=== PATIENT | female | born 1965 | race Caucasian/White ===

== ENCOUNTER 2017-08-11 21:13 | Emergency (ER) | payer OTHER ==
[~2017-08-11] VITALS: Ht 160 cm; Wt 117.6 kg
[2017-08-11 21:18] VITALS: BP 152/105
--- NOTE | 2017-08-11 21:24 | NUR ---
52/F CAME IN W C/O 01/23 EPIGASTRIC PAIN, HEADACHE AND RT LEG NUMBNESS X 1 MONTH. BS ACTIVE X4, ABD SOFT AND DISTENDED. PT REPORTS DIARRHEA X3 TODAY, DENIES N/V, DENIES FEVER/CHILLS. DENIES INJURY/TRAUMA. NO ACUTE RESPIRATORY DISTRESS NOTED AT THIS TIME. PMH: HTN,DM, HLD, DENIES OTC
[2017-08-11] MEDS ORDERED: NACL 0.9% 1,000 ML IV ONE (21:40)
[2017-08-11] MEDS ORDERED: KETOROLAC 30 MG/ML VIAL IVP ONE (21:40)
[2017-08-11] MEDS ORDERED: LISI5TAB18 PO (21:54)
[2017-08-11] MEDS ORDERED: GLIP5TAB4 PO (21:54)
[2017-08-11] MEDS ORDERED: SIMV20TA1 PO (21:54)
[2017-08-11] MEDS ORDERED: GABA300C PO (21:54)
[2017-08-11] MEDS ORDERED: METF850T PO (21:54)
[2017-08-11] MEDS ORDERED: AMLO5TAB PO (21:54)
[2017-08-11] MEDS ORDERED: OMEP20TC12 PO (21:54)
[2017-08-11] MEDS ORDERED: METF1TAB34 PO (21:54)
[2017-08-11] MEDS ORDERED: NAPR-54 PO (21:54)
[2017-08-11] MEDS ORDERED: CYCL10TA13 PO (21:54)
--- NOTE | 2017-08-11 22:06 | NUR ---
Ultrasound at bedside.
[2017-08-11 22:21] LABS: APPEARANCE,URINE CLEAR (CLEAR); BILIRUBIN,URINE NEGATIVE (NEGATIVE); BLOOD, URINE NEGATIVE (NEGATIVE); COLOR,URINE YELLOW (YELLOW); LEUKOCYTE ESTERASE ,URINE NEGATIVE (NEGATIVE); NITRITE, URINE NEGATIVE (NEGATIVE); PH,URINE 6.5 (5.0-9.0); UGLUCOSE NEGATIVE (NEGATIVE)
[2017-08-11 22:36] LABS: ANION GAP 15.3 (8-16); CARBON DIOXIDE 26.6 mmol/L (21-32); CREATININE 0.7 mg/dL (0.6-1.3); POTASSIUM 3.9 mmol/L (3.5-5.1)
[2017-08-11 22:38] LABS: BASOPHILS # (AUTO) 0.2 K/uL (0.00-0.22); BASOPHILS % (AUTO) 1.4 % (0.0-2.0); EOSINOPHILS # (AUTO) 0.2 K/uL (0-0.4); EOSINOPHILS % (AUTO) 1.3 % (0.0-4.0); HEMATOCRIT 36.7 % (36-48); HEMOGLOBIN 12.1 g/dL (12.0-16.0); LYMPHOCYTES # (AUTO) 2.3 K/uL (2.5-16.5); LYMPHOCYTES % (AUTO) 20.3 % (20.5-51.1); MEAN CORPUSCULAR HEMOGLOBIN 27 pg (27-31); MEAN CORPUSCULAR HGB CONC 33 g/dL (33-37); MEAN CORPUSCULAR VOLUME 81.8 fL (80-94); MONOCYTES # (AUTO) 0.9 K/uL (0.8-1.0); MONOCYTES % (AUTO) 8.1 % (1.7-9.3); NEUTROPHILS % (AUTO) 68.9 % (42.2-75.2); PLATELET COUNT (AUTO) 241 K/uL (140-450); RED BLOOD CELL COUNT(AUTO) 4.49 MIL/uL (4.20-5.40); RED CELL DISTRIBUTION WIDTH 12.4 % (11.6-13.7); WHITE BLOOD COUNT (AUTO) 11.6 K/uL (4.8-10.8)
[2017-08-11 22:43] LABS: ALBUMIN 3.4 g/dL (3.4-5.0); TOTAL BILIRUBIN 0.2 mg/dL (0.0-1.0)
--- NOTE | 2017-08-11 23:00 | NUR ---
Patient appears to be resting comfortably in bed. Vital Signs within normal limits. Respirations even and unlabored. reports 05/25 epigastric pain, states " i feel better"
[2017-08-12 01:12] VITALS: BP 118/65
== END 2017-08-12 01:13 | disposition home or self-care (01) ==
LOC: MED 21:13
DX: K76.0 Fatty (change of) liver, not elsewhere classified (principal); E66.9 Obesity, unspecified; E11.9 Type 2 diabetes mellitus without complications; I10 Essential (primary) hypertension
CPT/HCPCS: 36415; 76705; 80053; 81003; 82150; 82948; 83690; 85025; 93971; 96361; 96374; 99285; J1885; J7030; Q0092

== ENCOUNTER 2017-08-13 18:07 | Emergency (ER) | payer OTHER ==
[~2017-08-13] VITALS: Ht 152.4 cm; Wt 108.9 kg
[~2017-08-13 18:07] MED LIST: AMLO5TAB PO; CYCL10TA13 PO; GABA300C PO; GLIP5TAB4 PO; LISI5TAB18 PO; METF1TAB34 PO; METF850T PO; NAPR-54 PO; OMEP20TC12 PO; SIMV20TA1 PO
[2017-08-13 18:12] VITALS: BP 144/99
--- NOTE | 2017-08-13 18:29 | NUR ---
PT HAD A EKG, ST @112, SHOWED TO ER JERMAN CARDOSO TO BE I LOBY UNTIL BED IS AVAILABLE. PT IFORMED TO LET STAFF KNOW IF PAIN WORSENS
[2017-08-13 19:16] LABS: BASOPHILS # (AUTO) 0.2 K/uL (0.00-0.22); BASOPHILS % (AUTO) 1.8 % (0.0-2.0); EOSINOPHILS # (AUTO) 0.3 K/uL (0-0.4); EOSINOPHILS % (AUTO) 2.4 % (0.0-4.0); HEMATOCRIT 38.1 % (36-48); HEMOGLOBIN 12.6 g/dL (12.0-16.0); LYMPHOCYTES # (AUTO) 2.2 K/uL (2.5-16.5); LYMPHOCYTES % (AUTO) 20.8 % (20.5-51.1); MEAN CORPUSCULAR HEMOGLOBIN 27 pg (27-31); MEAN CORPUSCULAR HGB CONC 33 g/dL (33-37); MEAN CORPUSCULAR VOLUME 82.6 fL (80-94); MONOCYTES # (AUTO) 0.8 K/uL (0.8-1.0); MONOCYTES % (AUTO) 7.6 % (1.7-9.3); NEUTROPHILS # (AUTO) 7.2 K/uL (1.8-7.7); NEUTROPHILS % (AUTO) 67.4 % (42.2-75.2); PLATELET COUNT (AUTO) 263 K/uL (140-450); RED BLOOD CELL COUNT(AUTO) 4.61 MIL/uL (4.20-5.40); RED CELL DISTRIBUTION WIDTH 12.9 % (11.6-13.7); WHITE BLOOD COUNT (AUTO) 10.7 K/uL (4.8-10.8)
--- NOTE | 2017-08-13 19:25 | NUR ---
PT AMBULATED TO ER CHAIR A
[2017-08-13 19:29] LABS: ANION GAP 14.5 (8-16); CARBON DIOXIDE 27.5 mmol/L (21-32); CREATININE 0.7 mg/dL (0.6-1.3)
[2017-08-13 19:34] LABS: PROTHROMBIN TIME 9.8 secs (10.8-13.4)
--- NOTE | 2017-08-13 19:43 | NUR ---
DR. CRUZ TALKING TO PATIENT
[2017-08-13 19:51] LABS: ALBUMIN 3.7 g/dL (3.4-5.0); TOTAL BILIRUBIN 0.3 mg/dL (0.0-1.0)
[2017-08-13] MEDS ORDERED: KETOROLAC 60 MG/2 ML VIAL IM ONE (20:05)
[2017-08-13] MEDS ORDERED: PANTOPRAZOLE 40 MG TABEC PO ONE (20:10)
[2017-08-13 22:11] VITALS: BP 133/81
--- NOTE | 2017-08-13 22:11 | NUR ---
Patient discharged with v/s stable. Written and verbal after care instructions given and explained. Patient alert, oriented and verbalized understanding of instructions. Ambulatory with steady gait. All questions addressed prior to discharge. ID band removed. Patient advised to follow up with PMD. Rx of LACTULOSE, TRAMADOL given. Patient educated on indication of medication including possible reaction and side effects. Opportunity to ask questions provided and answered.
== END 2017-08-13 22:11 | disposition home or self-care (01) ==
LOC: MED 18:07
DX: R10.13 Epigastric pain (principal); R63.0 Anorexia; E11.9 Type 2 diabetes mellitus without complications; I10 Essential (primary) hypertension; Z79.899 Other long term (current) drug therapy
CPT/HCPCS: 36415; 71045; 74018; 80053; 83880; 84484; 85025; 85610; 85730; 96372; 99285; J1885

== ENCOUNTER 2017-09-19 15:32 | Emergency (ER) | payer OTHER ==
[~2017-09-19] VITALS: Ht 165.1 cm
[2017-09-19 15:38] VITALS: BP 144/79
[2017-09-19 15:43] VITALS: BP 144/79
--- NOTE | 2017-09-19 15:43 | NUR ---
PT TAKEN TO BED 2 VIA W/C.
[2017-09-19] MEDS ORDERED: KETOROLAC 30 MG/ML VIAL IM ONE (16:15)
[2017-09-19] MEDS ORDERED: fentaNYL 0.05 MG/ML VIAL NS ONE (16:15)
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
[2017-09-19 17:27] VITALS: BP 144/79
--- NOTE | 2017-09-19 17:27 | NUR ---
Patient discharged with v/s stable. Written and verbal after care instructions given and explained. Patient alert, oriented and verbalized understanding of instructions. Ambulatory with steady gait. All questions addressed prior to discharge. ID band removed. Patient advised to follow up with PMD. Rx of Watts given. Patient educated on indication of medication including possible reaction and side effects. Opportunity to ask questions provided and answered.
== END 2017-09-19 17:27 | disposition home or self-care (01) ==
LOC: MED 15:32
DX: M13.861 Other specified arthritis, right knee (principal); E11.9 Type 2 diabetes mellitus without complications; I10 Essential (primary) hypertension; Z79.84 Long term (current) use of oral hypoglycemic drugs; Z79.899 Other long term (current) drug therapy
CPT/HCPCS: 73562; 96372; 99284; J1885; J3010

== ENCOUNTER 2018-06-21 16:24 | Emergency (ER) | payer OTHER ==
[~2018-06-21] VITALS: Ht 165.1 cm; Wt 115.7 kg
[2018-06-21 16:30] VITALS: BP 156/69
--- NOTE | 2018-06-21 16:36 | NUR ---
PATIENT AMBULATED TO BED 4 AT THIS TIME.
[2018-06-21] MEDS ORDERED: diphenhydrAMINE 50 MG CAP PO ONE (16:40)
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
[2018-06-21 17:35] VITALS: BP 112/72
--- NOTE | 2018-06-21 17:42 | NUR ---
Patient discharged with v/s stable. Written and verbal after care instructions given and explained. Patient alert, oriented and verbalized understanding of instructions. Ambulatory with steady gait. All questions addressed prior to discharge. ID band removed. Patient advised to follow up with PMD. Rx of BENADRYL & ACETAMINOPHEN given. Patient educated on indication of medication including possible reaction and side effects. Opportunity to ask questions provided and answered.
== END 2018-06-21 17:42 | disposition home or self-care (01) ==
LOC: MED 16:24
DX: T78.40XA Allergy, unspecified, initial encounter (principal); T39.315A Adverse effect of propionic acid derivatives, initial encounter; E11.9 Type 2 diabetes mellitus without complications; I10 Essential (primary) hypertension; Z79.1 Long term (current) use of non-steroidal anti-inflammatories (NSAID); Z79.84 Long term (current) use of oral hypoglycemic drugs; Z79.899 Other long term (current) drug therapy; Y92.89 Other specified places as the place of occurrence of the external cause
CPT/HCPCS: 99283; Q0163

== ENCOUNTER 2019-01-26 18:31 | Emergency (ER) | payer OTHER ==
[~2019-01-26] VITALS: Ht 160 cm; Wt 119.3 kg
[2019-01-26 18:38] VITALS: BP 146/90
[2019-01-26] MEDS ORDERED: ASPIRIN 81 MG TAB.CHEW PO ONE (18:45)
[2019-01-26] MEDS ORDERED: GABA300C PO (18:51)
[2019-01-26] MEDS ORDERED: PIOG30TA PO (18:53)
[2019-01-26] MEDS ORDERED: FURO20TA8 PO (18:53)
[2019-01-26] MEDS ORDERED: ESCI20TA PO (18:54)
[2019-01-26] MEDS ORDERED: ASPI81EC97 PO (18:54)
[2019-01-26] MEDS ORDERED: METF500T PO (18:56)
[2019-01-26 19:10] LABS: BASOPHILS % (AUTO) 0.3 % (0.0-2.0); EOSINOPHILS # (AUTO) 0.3 K/uL (0-0.4); EOSINOPHILS % (AUTO) 2.6 % (0.0-4.0); HEMATOCRIT 36.6 % (36-48); HEMOGLOBIN 12.1 g/dL (12.0-16.0); LYMPHOCYTES # (AUTO) 2.7 K/uL (2.5-16.5); LYMPHOCYTES % (AUTO) 26.3 % (20.5-51.1); MEAN CORPUSCULAR HEMOGLOBIN 27 pg (27-31); MEAN CORPUSCULAR HGB CONC 33 g/dL (33-37); MEAN CORPUSCULAR VOLUME 80.8 fL (80-94); MONOCYTES # (AUTO) 0.9 K/uL (0.8-1.0); MONOCYTES % (AUTO) 8.4 % (1.7-9.3); NEUTROPHILS # (AUTO) 6.4 K/uL (1.8-7.7); NEUTROPHILS % (AUTO) 62.4 % (42.2-75.2); PLATELET COUNT (AUTO) 280 K/uL (140-450); RED BLOOD CELL COUNT(AUTO) 4.53 MIL/uL (4.20-5.40); RED CELL DISTRIBUTION WIDTH 14.6 % (11.6-13.7); WHITE BLOOD COUNT (AUTO) 10.3 K/uL (4.8-10.8)
[2019-01-26] MEDS ORDERED: KETOROLAC 30 MG/ML VIAL IVP ONE (19:10)
[2019-01-26 19:24] LABS: ANION GAP 17.4 (8-16); CARBON DIOXIDE 24.3 mmol/L (21-32); CREATININE 0.8 mg/dL (0.6-1.3); POTASSIUM 3.7 mmol/L (3.5-5.1)
[2019-01-26 19:30] LABS: ALBUMIN 3.4 g/dL (3.4-5.0); TOTAL BILIRUBIN 0.3 mg/dL (0.0-1.0)
[2019-01-26 20:38] VITALS: BP 122/69
== END 2019-01-26 20:38 | disposition home or self-care (01) ==
LOC: MED 18:31
DX: R07.89 Other chest pain (principal); E11.9 Type 2 diabetes mellitus without complications; I10 Essential (primary) hypertension; Z79.899 Other long term (current) drug therapy; Z79.82 Long term (current) use of aspirin; Z88.8 Allergy status to other drugs, medicaments and biological substances
CPT/HCPCS: 36415; 71045; 80053; 83880; 84484; 85025; 93005; 96374; 99284; J1885; Q0092

== ENCOUNTER 2019-11-29 12:22 | Emergency (ER) | payer OTHER ==
[~2019-11-29] VITALS: Ht 165.1 cm; Wt 117.9 kg
[~2019-11-29 12:22] MED LIST changes: -AMLO5TAB PO; +ASPI81EC97 PO; -CYCL10TA13 PO; +ESCI20TA PO; +FURO20TA8 PO; -METF1TAB34 PO; +METF500T PO; -METF850T PO; -NAPR-54 PO; +PIOG30TA PO
[2019-11-29 12:43] VITALS: BP 148/105
--- NOTE | 2019-11-29 12:43 | NUR ---
PT AMBULATED TO BED 12
--- NOTE | 2019-11-29 12:56 | NUR ---
54/F presents to ED with complaints of vomiting x 8 days. Pt states she had a colonoscopy performed this past Tuesday and states she was placed on a clear diet 3 days prior to procedure. Pt states she was vomiting prior to having the procedure. Pt complains of nausea, no active vomiting noted. Denies abdominal pain. Denies fever or chills. Patient is AOX4, ambulatory with steady gait.
--- NOTE | 2019-11-29 13:00 | NUR ---
Dr. Ozuna is evaluating the patient at bedside.
[2019-11-29] MEDS ORDERED: NACL 0.9% 2,000 ML IV ONE (13:10)
[2019-11-29 13:43] LABS: BASOPHILS # (AUTO) 0.1 K/uL (0.00-0.22); EOSINOPHILS # (AUTO) 0.2 K/uL (0-0.4); EOSINOPHILS % (AUTO) 1.9 % (0.0-4.0); HEMATOCRIT 42.1 % (36-48); HEMOGLOBIN 13.7 g/dL (12.0-16.0); LYMPHOCYTES # (AUTO) 1.9 K/uL (2.5-16.5); LYMPHOCYTES % (AUTO) 17.8 % (20.5-51.1); MEAN CORPUSCULAR HEMOGLOBIN 25 pg (27-31); MEAN CORPUSCULAR HGB CONC 33 g/dL (33-37); MEAN CORPUSCULAR VOLUME 76.1 fL (80-94); MONOCYTES # (AUTO) 0.7 K/uL (0.8-1.0); MONOCYTES % (AUTO) 6.7 % (1.7-9.3); NEUTROPHILS # (AUTO) 7.7 K/uL (1.8-7.7); NEUTROPHILS % (AUTO) 72.6 % (42.2-75.2); PLATELET COUNT (AUTO) 363 K/uL (140-450); RED BLOOD CELL COUNT(AUTO) 5.53 MIL/uL (4.20-5.40); RED CELL DISTRIBUTION WIDTH 15.4 % (11.6-13.7); WHITE BLOOD COUNT (AUTO) 10.6 K/uL (4.8-10.8)
[2019-11-29 14:26] LABS: ALBUMIN 3.9 g/dL (3.4-5.0); CARBON DIOXIDE 26.4 mmol/L (21-32); CREATININE 1.7 mg/dL (0.6-1.3); POTASSIUM 4.4 mmol/L (3.5-5.1); TOTAL BILIRUBIN 0.3 mg/dL (0.0-1.0)
--- NOTE | 2019-11-29 15:37 | NUR ---
IV removed, catheter intact and site benign. Applied folded 4x4 gauze and tape to stop bleeding.
[2019-11-29 15:38] VITALS: BP 163/86
--- NOTE | 2019-11-29 15:38 | NUR ---
Patient discharged with v/s stable. Written and verbal after care instructions given and explained. Patient alert, oriented and verbalized understanding of instructions. Ambulatory with steady gait. All questions addressed prior to discharge. ID band removed. Patient advised to follow up with PMD. Rx of Zofran ODT 4mg given. Patient educated on indication of medication including possible reaction and side effects. Opportunity to ask questions provided and answered.
== END 2019-11-29 15:38 | disposition home or self-care (01) ==
LOC: MED 12:22
DX: E86.0 Dehydration (principal); E11.9 Type 2 diabetes mellitus without complications; R11.2 Nausea with vomiting, unspecified; I10 Essential (primary) hypertension; I51.9 Heart disease, unspecified; Z79.899 Other long term (current) drug therapy; Z79.84 Long term (current) use of oral hypoglycemic drugs; Z88.6 Allergy status to analgesic agent; Z88.8 Allergy status to other drugs, medicaments and biological substances
CPT/HCPCS: 36415; 80053; 81002; 85025; 93005; 96360; 96361; 99284; J7030

== ENCOUNTER 2020-01-21 22:42 | Emergency (ER) | payer OTHER ==
[~2020-01-21] VITALS: Ht 157.5 cm; Wt 119.7 kg
[2020-01-21 23:14] VITALS: BP 136/88
--- NOTE | 2020-01-21 23:19 | NUR ---
PT AMBULATED TO BED 5 WITH STEADY GAIT
--- NOTE | 2020-01-21 23:20 | NUR ---
PT PROVIDING URINE SAMPLE
[2020-01-21] MEDS ORDERED: MORPHINE SULFATE 4 MG/ML SYR IVP ONE (23:45)
[2020-01-22 00:16] LABS: BASOPHILS % (AUTO) 0.1 % (0.0-2.0); EOSINOPHILS # (AUTO) 0.1 K/uL (0-0.4); EOSINOPHILS % (AUTO) 0.4 % (0.0-4.0); HEMATOCRIT 35.1 % (36-48); HEMOGLOBIN 11.1 g/dL (12.0-16.0); LYMPHOCYTES # (AUTO) 2.3 K/uL (2.5-16.5); LYMPHOCYTES % (AUTO) 10.4 % (20.5-51.1); MEAN CORPUSCULAR HEMOGLOBIN 24 pg (27-31); MEAN CORPUSCULAR HGB CONC 32 g/dL (33-37); MEAN CORPUSCULAR VOLUME 76.5 fL (80-94); MONOCYTES # (AUTO) 1.8 K/uL (0.8-1.0); MONOCYTES % (AUTO) 8.3 % (1.7-9.3); NEUTROPHILS # (AUTO) 17.8 K/uL (1.8-7.7); NEUTROPHILS % (AUTO) 80.8 % (42.2-75.2); PLATELET COUNT (AUTO) 279 K/uL (140-450); RED BLOOD CELL COUNT(AUTO) 4.58 MIL/uL (4.20-5.40); RED CELL DISTRIBUTION WIDTH 17.7 % (11.6-13.7); WHITE BLOOD COUNT (AUTO) 22.1 K/uL (4.8-10.8)
[2020-01-22 00:20] LABS: APPEARANCE,URINE CLEAR (CLEAR); BILIRUBIN,URINE NEGATIVE (NEGATIVE); BLOOD, URINE NEGATIVE (NEGATIVE); COLOR,URINE YELLOW (YELLOW); LEUKOCYTE ESTERASE ,URINE 1+ (NEGATIVE); NITRITE, URINE NEGATIVE (NEGATIVE); UGLUCOSE NEGATIVE (NEGATIVE)
[2020-01-22 00:27] LABS: RBC,URINE 0-5 /HPF (0-5); WBC,URINE 16-25 (MOD) /HPF (0-5)
[2020-01-22 00:36] LABS: ANION GAP 11.5 (8-16); CARBON DIOXIDE 27.3 mmol/L (21-32); CREATININE 0.8 mg/dL (0.6-1.3); POTASSIUM 3.8 mmol/L (3.5-5.1)
[2020-01-22 00:41] LABS: ALBUMIN 3.1 g/dL (3.4-5.0); TOTAL BILIRUBIN 0.5 mg/dL (0.0-1.0)
--- NOTE | 2020-01-22 00:56 | NUR ---
54 Y/O F PRESENTS TO ED C/O RLQ 02/22 X 2 DAYS. PT DENIES N/V/D. PT DESCRIBES PAIN TO BE SHARP AND INTERMITTENT. ABD SOFT, NON-TENDER. DENIES TRAUMA, INJURY. BED LOCKED AND IN LOWEST POSITION, SIDE RAIL UPX1. WILL CONTINUE TO MONITOR. ALLERGIES: METFORMIN, IBUPROFEN MHX: DIABETES, HTN
--- NOTE | 2020-01-22 00:56 | NUR ---
US AT BEDSIDE.
[2020-01-22] MEDS ORDERED: MORPHINE SULFATE 4 MG/ML SYR IVP ONE (02:15)
[2020-01-22 02:48] VITALS: BP 136/88
== END 2020-01-22 02:28 | disposition home or self-care (01) ==
LOC: MED 22:42
DX: N39.0 Urinary tract infection, site not specified (principal); I11.0 Hypertensive heart disease with heart failure; E11.9 Type 2 diabetes mellitus without complications; Z88.6 Allergy status to analgesic agent; Z79.899 Other long term (current) drug therapy; Z79.84 Long term (current) use of oral hypoglycemic drugs; Z79.82 Long term (current) use of aspirin
CPT/HCPCS: 36415; 76705; 80053; 81001; 81025; 83690; 85025; 87086; 96374; 99284; J2270; Q0092; 81002

== ENCOUNTER 2020-08-05 19:52 | Emergency (ER) | payer OTHER ==
[~2020-08-05] VITALS: Ht 152.4 cm; Wt 112.9 kg
[~2020-08-05 19:52] MED LIST changes: +GLIP5TAB14 PO; -GLIP5TAB4 PO
[2020-08-05 20:01] VITALS: BP 120/82
[2020-08-05] MEDS ORDERED: ASPIRIN 81 MG TAB.CHEW PO ONE (21:05)
[2020-08-05 21:20] LABS: BASOPHILS # (AUTO) 0.1 K/uL (0.00-0.22); BASOPHILS % (AUTO) 0.9 % (0.0-2.0); EOSINOPHILS # (AUTO) 0.2 K/uL (0-0.4); EOSINOPHILS % (AUTO) 1.8 % (0.0-4.0); HEMATOCRIT 32.4 % (36-48); HEMOGLOBIN 10.7 g/dL (12.0-16.0); LYMPHOCYTES % (AUTO) 29.4 % (20.5-51.1); MEAN CORPUSCULAR HEMOGLOBIN 25 pg (27-31); MEAN CORPUSCULAR HGB CONC 33 g/dL (33-37); MEAN CORPUSCULAR VOLUME 76.8 fL (80-94); MONOCYTES % (AUTO) 9.7 % (1.7-9.3); NEUTROPHILS # (AUTO) 5.9 K/uL (1.8-7.7); NEUTROPHILS % (AUTO) 58.2 % (42.2-75.2); PLATELET COUNT (AUTO) 273 K/uL (140-450); RED BLOOD CELL COUNT(AUTO) 4.22 MIL/uL (4.20-5.40); WHITE BLOOD COUNT (AUTO) 10.2 K/uL (4.8-10.8)
[2020-08-05 21:42] LABS: PROTHROMBIN TIME 9.3 secs (10.8-13.4)
[2020-08-05 21:44] LABS: ALBUMIN 3.3 g/dL (3.4-5.0); ANION GAP 10.2 (8-16); CARBON DIOXIDE 29.8 mmol/L (21-32); CREATININE 0.7 mg/dL (0.6-1.3); TOTAL BILIRUBIN 0.2 mg/dL (0.0-1.0)
[2020-08-06 00:13] VITALS: BP 129/78
== END 2020-08-06 00:09 | disposition home or self-care (01) ==
LOC: MED 19:52
DX: R07.89 Other chest pain (principal)
CPT/HCPCS: 36415; 71045; 80053; 84484; 85025; 85610; 85730; 93005; 99285

== ENCOUNTER 2020-09-02 12:23 | Emergency (ER) | payer OTHER ==
[~2020-09-02] VITALS: Ht 165.1 cm; Wt 112.0 kg
--- NOTE | 2020-09-02 12:31 | NUR ---
Patient ambulated to bed 1. RN evaluating the patient at bedside.
[2020-09-02 12:51] VITALS: BP 139/87
--- NOTE | 2020-09-02 12:58 | NUR ---
55 Y/O F BIB SELF FROM HOME, PT STSTAES EPIGASTRIC PAIN STARTED TODAY 09/02/20 AND HAS BEEN HAVING N&V, STATES 10 EPISODES OF WATERY EMESIS. DENIES HEADACHE, SOB, CHEST PAIN OR COUGH. PMH: ARTHRITIS, HTN, DM2 ALLERGY: IBUPROFEN (FACIAL SWELLING), METFORMIN
[2020-09-02] MEDS ORDERED: ONDANSETRON 4 MG/2 ML VIAL IVP ONE (13:55)
[2020-09-02] MEDS ORDERED: NACL 0.9% 1,000 ML IV ONE (13:55)
[2020-09-02] MEDS ORDERED: MORPHINE SULFATE 4 MG/ML SYR IVP ONE (13:55)
--- NOTE | 2020-09-02 13:59 | NUR ---
EKG completed at bedside by EMT.
[2020-09-02 14:30] LABS: BASOPHILS # (AUTO) 0.1 K/uL (0.00-0.22); BASOPHILS % (AUTO) 0.7 % (0.0-2.0); EOSINOPHILS # (AUTO) 0.1 K/uL (0-0.4); EOSINOPHILS % (AUTO) 1.3 % (0.0-4.0); HEMATOCRIT 36.2 % (36-48); HEMOGLOBIN 11.8 g/dL (12.0-16.0); LYMPHOCYTES # (AUTO) 1.7 K/uL (2.5-16.5); LYMPHOCYTES % (AUTO) 17.4 % (20.5-51.1); MEAN CORPUSCULAR HEMOGLOBIN 25 pg (27-31); MEAN CORPUSCULAR HGB CONC 33 g/dL (33-37); MONOCYTES # (AUTO) 0.8 K/uL (0.8-1.0); MONOCYTES % (AUTO) 7.6 % (1.7-9.3); NEUTROPHILS # (AUTO) 7.2 K/uL (1.8-7.7); PLATELET COUNT (AUTO) 298 K/uL (140-450); RED CELL DISTRIBUTION WIDTH 15.8 % (11.6-13.7); WHITE BLOOD COUNT (AUTO) 9.9 K/uL (4.8-10.8)
[2020-09-02 14:54] LABS: ALBUMIN 3.4 g/dL (3.4-5.0); ANION GAP 10.7 (8-16); CARBON DIOXIDE 27.6 mmol/L (21-32); CREATININE 0.6 mg/dL (0.6-1.3); POTASSIUM 3.3 mmol/L (3.5-5.1); TOTAL BILIRUBIN 0.4 mg/dL (0.0-1.0)
[2020-09-02] MEDS ORDERED: ACET-9800 PO (15:38)
[2020-09-02] MEDS ORDERED: ONDA4TAB PO (15:38)
[2020-09-02] MEDS ORDERED: BEN10 PO (15:38)
[2020-09-02 16:07] VITALS: BP 139/87
--- NOTE | 2020-09-02 16:07 | NUR ---
Patient discharged with v/s stable. Written and verbal after care instructions given and explained. Patient alert, oriented and verbalized understanding of instructions. Ambulatory with steady gait. All questions addressed prior to discharge. ID band removed. Patient advised to follow up with PMD. Rx of TYLENOL, BENTYL, ZOFRAN given. Patient educated on indication of medication including possible reaction and side effects. Opportunity to ask questions provided and answered.
== END 2020-09-02 16:07 | disposition home or self-care (01) ==
LOC: MED 12:23
DX: R10.13 Epigastric pain (principal); R11.10 Vomiting, unspecified; I11.9 Hypertensive heart disease without heart failure; E11.9 Type 2 diabetes mellitus without complications; Z88.6 Allergy status to analgesic agent; Z79.899 Other long term (current) drug therapy
CPT/HCPCS: 36415; 74018; 80053; 83690; 84484; 85025; 93005; 96361; 96374; 96375; 99285; J2270; J2405; J7030; 81002

== ENCOUNTER 2021-03-21 10:34 | Emergency (ER) | payer OTHER ==
[~2021-03-21] VITALS: Ht 157.5 cm; Wt 66.7 kg
[~2021-03-21 10:34] MED LIST changes: +ACET-9800 PO; +BEN10 PO; +OMEP-278 PO; -OMEP20TC12 PO; +ONDA4TAB PO
[2021-03-21 10:39] VITALS: BP 153/82
[2021-03-21] MEDS ORDERED: FAMOTIDINE 20 MG TAB PO ONE (10:45)
[2021-03-21] MEDS ORDERED: diphenhydrAMINE 50 MG CAP PO ONE (10:45)
[2021-03-21] MEDS ORDERED: CRUSHER, PILL MC ONE (10:48)
[2021-03-21] MEDS ORDERED: EPIN0.3S IM (13:35)
[2021-03-21 13:42] VITALS: BP 123/90
== END 2021-03-21 13:42 | disposition home or self-care (01) ==
LOC: MED 10:34
DX: T78.49XA Other allergy, initial encounter (principal); I10 Essential (primary) hypertension
CPT/HCPCS: 99284; Q0163

== ENCOUNTER 2021-03-31 14:22 | Emergency (ER) | payer OTHER ==
[~2021-03-31] VITALS: Ht 195.6 cm; Wt 115.2 kg
[~2021-03-31 14:22] MED LIST changes: +EPIN0.3S IM
[2021-03-31 14:51] VITALS: BP 140/69
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
--- NOTE | 2021-03-31 16:10 | NUR ---
LABS COLLECTED AND WALKED TO LAB
[2021-03-31 16:17] LABS: BASOPHILS % (AUTO) 0.3 % (0.0-2.0); EOSINOPHILS # (AUTO) 0.2 K/uL (0-0.4); EOSINOPHILS % (AUTO) 1.7 % (0.0-4.0); HEMATOCRIT 33.9 % (36-48); HEMOGLOBIN 11.2 g/dL (12.0-16.0); LYMPHOCYTES # (AUTO) 2.5 K/uL (2.5-16.5); LYMPHOCYTES % (AUTO) 23.6 % (20.5-51.1); MEAN CORPUSCULAR HEMOGLOBIN 26 pg (27-31); MEAN CORPUSCULAR HGB CONC 33 g/dL (33-37); MEAN CORPUSCULAR VOLUME 78.3 fL (80-94); MONOCYTES % (AUTO) 9.5 % (1.7-9.3); NEUTROPHILS # (AUTO) 6.8 K/uL (1.8-7.7); NEUTROPHILS % (AUTO) 64.9 % (42.2-75.2); PLATELET COUNT (AUTO) 306 K/uL (140-450); RED BLOOD CELL COUNT(AUTO) 4.33 MIL/uL (4.20-5.40); WHITE BLOOD COUNT (AUTO) 10.5 K/uL (4.8-10.8)
[2021-03-31 16:36] LABS: ALBUMIN 3.5 g/dL (3.4-5.0); ANION GAP 9.8 (8-16); CREATININE 0.7 mg/dL (0.6-1.3); POTASSIUM 3.8 mmol/L (3.5-5.1); TOTAL BILIRUBIN 0.2 mg/dL (0.0-1.0)
[2021-03-31] MEDS ORDERED: CLIN300C61 PO (17:41)
[2021-03-31 17:52] VITALS: BP 140/69
--- NOTE | 2021-03-31 17:52 | NUR ---
Patient discharged with v/s stable. Written and verbal after care instructions given and explained. Patient alert, oriented and verbalized understanding of instructions. Ambulatory with steady gait. All questions addressed prior to discharge. ID band removed. Patient advised to follow up with PMD. Rx of CLINDAMYCIN HCL given. Patient educated on indication of medication including possible reaction and side effects. Opportunity to ask questions provided and answered.
== END 2021-03-31 17:52 | disposition home or self-care (01) ==
LOC: MED 14:22
DX: S99.922A Unspecified injury of left foot, initial encounter (principal); E11.9 Type 2 diabetes mellitus without complications; I10 Essential (primary) hypertension; Z88.6 Allergy status to analgesic agent; Z88.8 Allergy status to other drugs, medicaments and biological substances; Z79.82 Long term (current) use of aspirin; Z79.84 Long term (current) use of oral hypoglycemic drugs; Z79.899 Other long term (current) drug therapy; W20.8XXA Other cause of strike by thrown, projected or falling object, initial encounter; Y93.89 Activity, other specified; Y92.89 Other specified places as the place of occurrence of the external cause; Y99.8 Other external cause status
CPT/HCPCS: 36415; 73660; 80053; 85025; 99284

== ENCOUNTER 2021-04-03 13:22 | Emergency (ER) | payer OTHER ==
[~2021-04-03] VITALS: Ht 160 cm; Wt 114.3 kg
[~2021-04-03 13:22] MED LIST changes: +CLIN300C61 PO
[2021-04-03 13:43] VITALS: BP 134/78
--- NOTE | 2021-04-03 13:50 | NUR ---
PT AMBULATED BACK TO LOBBY AT THIS TIME.
[2021-04-03] MEDS ORDERED: FAMO-92 PO (15:24)
[2021-04-03] MEDS ORDERED: PRED20TA5 PO (15:24)
[2021-04-03] MEDS ORDERED: SULF-59 PO (15:26)
[2021-04-03 15:38] VITALS: BP 134/78
--- NOTE | 2021-04-03 15:39 | NUR ---
Patient discharged with v/s stable. Written and verbal after care instructions given and explained. Patient alert, oriented and verbalized understanding of instructions. Ambulatory with NIECE to car. All questions addressed prior to discharge. ID band removed. Patient advised to follow up with PMD. Rx of FAMOTIDINE, PREDNISONE, SULFAMETHOXAZOLE given. Patient educated on indication of medication including possible reaction and side effects. Opportunity to ask questions provided and answered.
== END 2021-04-03 15:39 | disposition home or self-care (01) ==
LOC: MED 13:22
DX: T36.8X5A Adverse effect of other systemic antibiotics, initial encounter (principal); E11.9 Type 2 diabetes mellitus without complications; I10 Essential (primary) hypertension; Z79.84 Long term (current) use of oral hypoglycemic drugs; Z79.899 Other long term (current) drug therapy; Z88.6 Allergy status to analgesic agent; Z88.8 Allergy status to other drugs, medicaments and biological substances; Y92.89 Other specified places as the place of occurrence of the external cause
CPT/HCPCS: 99283

== ENCOUNTER 2022-01-27 23:47 | Emergency (ER) | payer OTHER ==
[~2022-01-27] VITALS: Ht 160 cm; Wt 112.9 kg
[~2022-01-27 23:47] MED LIST changes: +FAMO-92 PO; +METF-346 PO; -METF500T PO; +PRED20TA5 PO; +SIMV-372 PO; -SIMV20TA1 PO; +SULF-59 PO
[2022-01-28 00:12] VITALS: BP 136/117
--- NOTE | 2022-01-28 00:24 | NUR ---
Patient ambulate to Bed 12 with strong gait. Addendum: 01/28/22 at 0024 by [id number] Patient ambulate to Bed 12 with strong gait. Patient on monitor.
--- NOTE | 2022-01-28 00:40 | NUR ---
ASSUME CARE OF PT AT THIS TIME, REPORT GIVEN BY [facility], PT C/O CP AND SOB X 2 HRS, CP RADIATES TO LEFT ARM, PT STATES BS HAS BEEN HIGH ALL DAY IN THE 400'S, C/O SEVERE HEADACHE, HX-HTN, DM. DENIES ABD PAIN AND N/V/D. WAITING FOR EVALUATION.
[2022-01-28 01:30] LABS: BASOPHILS # (AUTO) 0.1 K/uL (0.00-0.22); BASOPHILS % (AUTO) 0.7 % (0.0-2.0); EOSINOPHILS # (AUTO) 0.3 K/uL (0-0.4); EOSINOPHILS % (AUTO) 3.1 % (0.0-4.0); HEMATOCRIT 36.6 % (36-48); HEMOGLOBIN 12.2 g/dL (12.0-16.0); LYMPHOCYTES # (AUTO) 2.9 K/uL (2.5-16.5); LYMPHOCYTES % (AUTO) 29.8 % (20.5-51.1); MEAN CORPUSCULAR HEMOGLOBIN 26 pg (27-31); MEAN CORPUSCULAR HGB CONC 33 g/dL (33-37); MEAN CORPUSCULAR VOLUME 77.5 fL (80-94); MONOCYTES % (AUTO) 9.8 % (1.7-9.3); NEUTROPHILS # (AUTO) 5.6 K/uL (1.8-7.7); NEUTROPHILS % (AUTO) 56.6 % (42.2-75.2); PLATELET COUNT (AUTO) 291 K/uL (140-450); RED BLOOD CELL COUNT(AUTO) 4.72 MIL/uL (4.20-5.40); RED CELL DISTRIBUTION WIDTH 15.8 % (11.6-13.7); WHITE BLOOD COUNT (AUTO) 9.8 K/uL (4.8-10.8)
[2022-01-28] MEDS ORDERED: CYCLOBENZAPRINE 10 MG TAB PO ONE (01:40)
[2022-01-28 01:46] LABS: PROTHROMBIN TIME 9.8 secs (10.8-13.4)
[2022-01-28 01:47] LABS: ALBUMIN 3.3 g/dL (3.4-5.0); CARBON DIOXIDE 24.6 mmol/L (21-32); CREATININE 1.2 mg/dL (0.6-1.3); POTASSIUM 3.6 mmol/L (3.5-5.1); TOTAL BILIRUBIN 0.5 mg/dL (0.0-1.0)
[2022-01-28] MEDS ORDERED: INSULIN REGULAR, HUMAN 100 UNIT/ML VIAL SUBQ ONE (02:05)
--- NOTE | 2022-01-28 02:30 | NUR ---
PT AMBULATED TO RESTROOM WITH UPRIGHT STEADY GAIT, PT DENIES CP OR SOB AT PRESENT TIME. PT PLACED ON TWISTER IN.
--- NOTE | 2022-01-28 03:42 | NUR ---
PT RESTING IN BED, PT DENIES CP. NO DISTRESS OBSERVED.
[2022-01-28] MEDS ORDERED: DICL100G5 TP (03:52)
[2022-01-28] MEDS ORDERED: CYCL-711 PO (03:52)
[2022-01-28 04:05] VITALS: BP 112/67
--- NOTE | 2022-01-28 04:10 | NUR ---
Patient discharged with v/s stable. Written and verbal after care instructions given and explained. Patient verbalized understanding. Ambulatory with steady gait. All questions addressed prior to discharge. Advised to follow up with PMD.
== END 2022-01-28 04:10 | disposition home or self-care (01) ==
LOC: MED 23:47
DX: E11.65 Type 2 diabetes mellitus with hyperglycemia (principal); M25.512 Pain in left shoulder; I10 Essential (primary) hypertension; I25.10 Atherosclerotic heart disease of native coronary artery without angina pectoris; Z79.4 Long term (current) use of insulin; Z79.899 Other long term (current) drug therapy
CPT/HCPCS: 36415; 71045; 73030; 80053; 82948; 83880; 84484; 85025; 85610; 85730; 93005; 96372; 99285; J1815; Q0092

== ENCOUNTER 2023-05-26 12:57 | Emergency (ER) | payer OTHER ==
[~2023-05-26] VITALS: Ht 167.6 cm; Wt 107.0 kg
[~2023-05-26 12:57] MED LIST changes: +CYCL-711 PO; +DICL100G32 TP; -GLIP5TAB14 PO; +GLIP5TAB24 PO
[2023-05-26 13:20] VITALS: BP 148/78; PULSE 97; RESP 16; TEMP 97.6; O2SAT 97
[2023-05-26] MEDS ORDERED: ACET-10509 PO (14:48)
[2023-05-26] MEDS ORDERED: CYCL-711 PO (14:48)
[2023-05-26 15:14] VITALS: BP 143/88
== END 2023-05-26 15:14 | disposition home or self-care (01) ==
LOC: MED 12:57
DX: M54.50 Low back pain, unspecified (principal); R03.0 Elevated blood-pressure reading, without diagnosis of hypertension; E11.9 Type 2 diabetes mellitus without complications; I10 Essential (primary) hypertension; E78.5 Hyperlipidemia, unspecified; Z79.899 Other long term (current) drug therapy; Z79.2 Long term (current) use of antibiotics; Z79.82 Long term (current) use of aspirin; Z88.1 Allergy status to other antibiotic agents; Z88.6 Allergy status to analgesic agent
CPT/HCPCS: 99283

== ENCOUNTER 2023-06-09 23:59 | Emergency (ER) | payer OTHER ==
[~2023-06-09] VITALS: Ht 165.1 cm; Wt 99.8 kg
[~2023-06-09 23:59] MED LIST changes: +ACET-10509 PO
[2023-06-10 00:02] VITALS: BP 136/58; PULSE 100; RESP 18; TEMP 97.4; O2SAT 100
[2023-06-10 00:28] VITALS: BP 132/64; PULSE 101; RESP 17
[2023-06-10 01:23] LABS: BASOPHILS # (AUTO) 0.1 K/uL (0.00-0.22); BASOPHILS % (AUTO) 0.9 % (0.0-2.0); EOSINOPHILS # (AUTO) 0.3 K/uL (0-0.4); EOSINOPHILS % (AUTO) 2.1 % (0.0-4.0); HEMOGLOBIN 14.2 g/dL (12.0-16.0); LYMPHOCYTES # (AUTO) 3.3 K/uL (2.5-16.5); LYMPHOCYTES % (AUTO) 25.4 % (20.5-51.1); MEAN CORPUSCULAR HEMOGLOBIN 27 pg (27-31); MEAN CORPUSCULAR HGB CONC 34 g/dL (33-37); MEAN CORPUSCULAR VOLUME 80.9 fL (80-94); MONOCYTES # (AUTO) 1.2 K/uL (0.8-1.0); MONOCYTES % (AUTO) 8.9 % (1.7-9.3); NEUTROPHILS # (AUTO) 8.2 K/uL (1.8-7.7); NEUTROPHILS % (AUTO) 62.7 % (42.2-75.2); PLATELET COUNT (AUTO) 286 K/uL (140-450); RED CELL DISTRIBUTION WIDTH 14.5 % (11.6-13.7)
[2023-06-10 01:34] LABS: ANION GAP 15.9 (8-16); CALCIUM 9.1 mg/dL (8.5-10.1); CARBON DIOXIDE 22.8 mmol/L (21-32); CREATININE 0.7 mg/dL (0.6-1.3); POTASSIUM 3.7 mmol/L (3.5-5.1)
[2023-06-10 02:05] VITALS: O2SAT 98
[2023-06-10 02:05] LABS: ALANINE AMINOTRANSFERASE 60 U/L (12-78); ALBUMIN 3.3 g/dL (3.4-5.0); ALKALINE PHOSPHATASE 163 U/L (50-136); ASPARTATE AMINOTRANSFERASE 27 U/L (15-37); BILIRUBIN,DIRECT 0.1 mg/dL (0.0-0.3); LIPASE 28 U/L (16-77); TOTAL BILIRUBIN 0.3 mg/dL (0.0-1.0); TOTAL PROTEIN, SERUM 8.5 g/dL (6.4-8.2)
[2023-06-10 02:40] LABS: APPEARANCE,URINE CLEAR (CLEAR); BILIRUBIN,URINE NEGATIVE (NEGATIVE); BLOOD, URINE NEGATIVE (NEGATIVE); COLOR,URINE YELLOW (YELLOW); LEUKOCYTE ESTERASE ,URINE 1+ (NEGATIVE); NITRITE, URINE NEGATIVE (NEGATIVE); PROTEIN,URINE NEGATIVE (NEGATIVE); UGLUCOSE 2+ (NEGATIVE); UROBILINOGEN,URINE 0.2 EU/dL (0.2 - 1)
[2023-06-10 03:01] LABS: BACTERIA,URINE 10-30 (MOD) /HPF (None Seen); MUCUS,URINE 1+ /LPF (None Seen); RBC,URINE 0-5 /HPF (0-5); SQUAMOUS EPITHELIAL CELL,UR 0-3 (FEW) /LPF (0-3 (FEW))
[2023-06-10] MEDS ORDERED: CEPH-588 PO (04:29)
== END 2023-06-10 04:38 | disposition home or self-care (01) ==
LOC: MED 23:59
DX: E11.649 Type 2 diabetes mellitus with hypoglycemia without coma (principal); N39.0 Urinary tract infection, site not specified; D72.829 Elevated white blood cell count, unspecified; I10 Essential (primary) hypertension; Z79.899 Other long term (current) drug therapy; Z79.2 Long term (current) use of antibiotics; Z79.82 Long term (current) use of aspirin; Z88.1 Allergy status to other antibiotic agents; Z88.6 Allergy status to analgesic agent
CPT/HCPCS: 36415; 70450; 80048; 80076; 81001; 82948; 83690; 84484; 85025; 87086; 93005; 99284

== ENCOUNTER 2023-08-22 19:39 | Inpatient (IN) | payer OTHER ==
[~2023-08-22] VITALS: Ht 157.5 cm; Wt 103.5 kg
[~2023-08-22 19:39] MED LIST changes: +CEPH-588 PO
[2023-08-22 19:45] VITALS: BP 95/57; PULSE 101; RESP 16; TEMP 97.6; O2SAT 95
[2023-08-22] MEDS: ACETAMINOPHEN EXTRA STRENGTH 500 MG TAB PO ONE (20:21)
[2023-08-22] MEDS: NACL 0.9% 1,000 ML IV ONE (20:21)
[2023-08-22 20:34] LABS: BASOPHILS # (AUTO) 0.1 K/uL (0.00-0.22); BASOPHILS % (AUTO) 1.1 % (0.0-2.0); EOSINOPHILS # (AUTO) 0.2 K/uL (0-0.4); EOSINOPHILS % (AUTO) 2.1 % (0.0-4.0); HEMATOCRIT 38.1 % (36-48); HEMOGLOBIN 13.2 g/dL (12.0-16.0); LYMPHOCYTES # (AUTO) 3.1 K/uL (2.5-16.5); LYMPHOCYTES % (AUTO) 28.7 % (20.5-51.1); MEAN CORPUSCULAR HEMOGLOBIN 28 pg (27-31); MEAN CORPUSCULAR HGB CONC 35 g/dL (33-37); MEAN CORPUSCULAR VOLUME 82.3 fL (80-94); MONOCYTES # (AUTO) 0.8 K/uL (0.8-1.0); MONOCYTES % (AUTO) 7.7 % (1.7-9.3); NEUTROPHILS # (AUTO) 6.6 K/uL (1.8-7.7); NEUTROPHILS % (AUTO) 60.4 % (42.2-75.2); PLATELET COUNT (AUTO) 256 K/uL (140-450); RED BLOOD CELL COUNT(AUTO) 4.63 MIL/uL (4.20-5.40); RED CELL DISTRIBUTION WIDTH 14.9 % (11.6-13.7); WHITE BLOOD COUNT (AUTO) 10.9 K/uL (4.8-10.8)
[2023-08-22 20:50] LABS: ALBUMIN 3.7 g/dL (3.4-5.0); ANION GAP 14.5 (8-16); CALCIUM 8.9 mg/dL (8.5-10.1); CARBON DIOXIDE 25.7 mmol/L (21-32); CREATININE 0.7 mg/dL (0.6-1.3); POTASSIUM 4.2 mmol/L (3.5-5.1); TOTAL BILIRUBIN 0.2 mg/dL (0.0-1.0); TOTAL PROTEIN, SERUM 7.5 g/dL (6.4-8.2)
[2023-08-22] MEDS ORDERED: ZOLPIDEM 5 MG TAB PO PRN (23:00)
[2023-08-22] MEDS ORDERED: NITROGLYCERIN 0.4 MG TAB SL PRN (23:00)
[2023-08-22] MEDS ORDERED: ACETAMINOPHEN 325 MG TAB PO PRN ×2 (23:00→23:05)
[2023-08-22] MEDS ORDERED: LORazepam 1 MG TAB PO PRN (23:00)
[2023-08-22] MEDS ORDERED: HYDROcodone/APAP 5/325 MG 1 TAB TAB PO PRN (23:05)
[2023-08-22] MEDS ORDERED: KCL 20 MEQ IN 100 mL PREMIX 200 ML IV PRN (23:05)
[2023-08-22] MEDS ORDERED: POTASSIUM CHLORIDE 10 MEQ TABER PO PRN (23:05)
[2023-08-22] MEDS ORDERED: MAG SULF 2000 MG/WATER PREMIX 50 ML IV PRN (23:05)
[2023-08-22] MEDS ORDERED: ESCI5TAB PO (23:29)
[2023-08-22] MEDS ORDERED: ASPI-1822 PO (23:29)
[2023-08-22] MEDS ORDERED: HYDR200T65 PO (23:29)
[2023-08-22] MEDS ORDERED: METF-713 PO (23:29)
[2023-08-22] MEDS ORDERED: GABA300C PO (23:29)
[2023-08-22] MEDS ORDERED: LIP80 PO (23:29)
[2023-08-23] VITALS (7 sets, daily range): BP systolic 127–132; BP diastolic 64–76; PULSE 65–97; RESP 17–19; TEMP 96.9–97.8; O2SAT 96–98
[2023-08-23] MEDS ORDERED: INSULIN LISPRO SLIDING SCALE 100 UNITS/ML VIAL SUBQ PRN (01:45)
[2023-08-23] MEDS ORDERED: DEXTROSE 50% 50 ML SYR IVP PRN (01:45)
[2023-08-23] MEDS: SODIUM CHLORIDE FLUSH 10 ML SYR IVF SCH (05:31)
[2023-08-23 05:33] LABS: AMPHETAMINE, URINE NEGATIVE ng/ml (NEG <=1000); BARBITURATE, URINE NEGATIVE ng/ml (NEG <=200); BENZODIAZEPINE, URINE NEGATIVE ng/mL (NEG <=200); CANNABINOID, URINE NEGATIVE ng/mL (NEG <=50); COCAINE, URINE NEGATIVE ng/mL (NEG <=300); OPIATE, URINE NEGATIVE ng/mL (NEG <=2000); PHENCYCLIDINE SCREEN,URINE NEGATIVE ng/mL (NEG <=25)
[2023-08-23] MEDS: BLOOD GLUCOSE MONITORING 1 DEV DEV FS SCH (06:40)
[2023-08-23 06:48] LABS: BASOPHILS # (AUTO) 0.1 K/uL (0.00-0.22); BASOPHILS % (AUTO) 0.6 % (0.0-2.0); EOSINOPHILS # (AUTO) 0.2 K/uL (0-0.4); EOSINOPHILS % (AUTO) 2.8 % (0.0-4.0); HEMATOCRIT 36.3 % (36-48); HEMOGLOBIN 12.6 g/dL (12.0-16.0); LYMPHOCYTES # (AUTO) 3.3 K/uL (2.5-16.5); LYMPHOCYTES % (AUTO) 40.4 % (20.5-51.1); MEAN CORPUSCULAR HEMOGLOBIN 29 pg (27-31); MEAN CORPUSCULAR HGB CONC 35 g/dL (33-37); MEAN CORPUSCULAR VOLUME 82.5 fL (80-94); MONOCYTES # (AUTO) 0.7 K/uL (0.8-1.0); MONOCYTES % (AUTO) 8.8 % (1.7-9.3); NEUTROPHILS # (AUTO) 3.8 K/uL (1.8-7.7); NEUTROPHILS % (AUTO) 47.4 % (42.2-75.2); PLATELET COUNT (AUTO) 239 K/uL (140-450); RED CELL DISTRIBUTION WIDTH 14.8 % (11.6-13.7); WHITE BLOOD COUNT (AUTO) 8.1 K/uL (4.8-10.8)
[2023-08-23 07:21] LABS: ALBUMIN 3.4 g/dL (3.4-5.0); ANION GAP 12.7 (8-16); CALCIUM 8.6 mg/dL (8.5-10.1); CARBON DIOXIDE 27.9 mmol/L (21-32); CREATININE 0.6 mg/dL (0.6-1.3); MAGNESIUM 1.7 mg/dL (1.8-2.4); POTASSIUM 3.6 mmol/L (3.5-5.1); TOTAL BILIRUBIN 0.3 mg/dL (0.0-1.0); TOTAL PROTEIN, SERUM 6.9 g/dL (6.4-8.2)
[2023-08-23] MEDS: lisinopriL 5 MG TAB PO SCH (09:02)
[2023-08-23] MEDS: ECOTRIN 81 MG TABEC PO SCH (09:02)
[2023-08-23] MEDS: MAGNESIUM OXIDE 400 MG TAB PO PRN (09:04)
[2023-08-23] MEDS ORDERED: MEDS-TO-BEDS MC SCH (21:00)
== END 2023-08-23 13:40 | disposition home or self-care (01) | DRG 204 ==
LOC: MED 19:39 → MMU 22:57 → MTU 23:33
PROVIDERS: ADMIT Student in an Organized Health Care Education/Training Program; ATTEND Student in an Organized Health Care Education/Training Program
DX: R55 Syncope and collapse (principal); E11.65 Type 2 diabetes mellitus with hyperglycemia; I10 Essential (primary) hypertension; M94.0 Chondrocostal junction syndrome [Tietze]; E66.9 Obesity, unspecified; E78.5 Hyperlipidemia, unspecified; Z88.1 Allergy status to other antibiotic agents; Z88.8 Allergy status to other drugs, medicaments and biological substances; Z79.899 Other long term (current) drug therapy; Z79.82 Long term (current) use of aspirin; Z79.1 Long term (current) use of non-steroidal anti-inflammatories (NSAID); Z68.41 Body mass index [BMI] 40.0-44.9, adult
CPT/HCPCS: 36415; 71045; 80053; 80305; 82948; 83735; 84484; 85025; 85379; 87081; 93005; 99285; J1815